=== PATIENT | male | born 1980 | race Caucasian/White ===

== ENCOUNTER 2019-05-13 07:45 | Emergency (ER) | payer OTHER ==
[~2019-05-13] VITALS: Ht 185.4 cm; Wt 95.3 kg
[~2019-05-13 07:45] MED LIST: GENT5DRO7 OP
[2019-05-13 07:53] VITALS: BP_SYST 131
[2019-05-13 08:36] VITALS: BP_SYST 124
== END 2019-05-13 08:36 | disposition home or self-care (01) ==
LOC: SED 07:45
DX: S43.401A Unspecified sprain of right shoulder joint, initial encounter (principal); X50.9XXA Other and unspecified overexertion or strenuous movements or postures, initial encounter; Y93.89 Activity, other specified; Y92.89 Other specified places as the place of occurrence of the external cause; Y99.8 Other external cause status
CPT/HCPCS: 99283